=== PATIENT | female | born 1955 | race Caucasian/White ===

== ENCOUNTER 2018-04-05 13:56 | Outpatient (CLI) | payer BC ==
--- NOTE | 2018-04-05 15:02 | RAD ---
AP VIEW PELVIS: Date: 04/05/18 INDICATION: History of right hip pain. COMPARISON: None. FINDINGS: There is a calcified fibroid seen within the lower central pelvis. Enthesopathic change is seen over the anterior pelvis. There is moderate degenerative change of the symphysis pubis. There is mild dege nerative change of SI joint. There is mild osteoarthrosis of both hips. No acute fracture is evident. IMPRESSION: 1. No acute osseous abnormality. 2. Calcified fibroid within the lower central pelvis. POS: [facility]
--- NOTE | 2018-04-05 16:52 | CT ---
CT OF THE PELVIS WITHOUT IV CONTRAST 04/05/18 INDICATION: History of pelvic mass and right hip pain. COMPARISON: AP view of the pelvis dated 04/05/18 at 2:06 p.m. FINDINGS: There is a peripherally calcified subserosal fibroid involving the anterior body of the uterus measur ing 5 cm. There are numerous additional smaller calcified fibroids within the body of the uterus. The re is a subserosal mass extending from the left posterolateral margin of the uterus measuring 3.7 x 2 .3 cm that is also suspicious for subserosal fibroid. This appears separate from the left adnexa whic h is best seen on image 3 4 of series 2. Right adnexa is normal appearing. There is small phleboliths in the lower pelvis. The bladder is decompressed. There is scattered diverticula involving the colon . There are moderate calcifications noted involving the visualized abdominal aortic and iliac vascula ture. No lymphadenopathy is evident. No free fluid is identified. There is a posterior midline fusion defect of L5. There is advanced disc degenerative and facet osteoarthritic change at L4-5 and L5-S1. No acute osseous abnormality is grossly evident. There is mild degenerative change of both hips. IMPRESSION: 1. Fibroid uterus. 2. Lobulated soft tissue density mass extending off the left posterolateral aspect of the uterin e fundus is suspicious for an additional subserosal fibroid. As a conservative measure, would recomme nd a follow up pelvic ultrasound to fully characterize this lesion. This lesion does appear to be sep arate from the left adnexa. 3. Scattered degenerative change and osteoarthritic change as described above. 4. Diverticulosis. 5. Other chronic findings as above. Contact was made with Dr. Tesha Riley's answering service. Call was made to Dr. Mercy matos' answering service at 4:05 p.m. on 04/05/18. Code CR POS: [facility]
== END 2018-04-05 13:57 | disposition home or self-care (01) ==
LOC: BICCT 13:56
DX: M25.551 Pain in right hip (principal); D25.2 Subserosal leiomyoma of uterus; M47.816 Spondylosis without myelopathy or radiculopathy, lumbar region; M47.817 Spondylosis without myelopathy or radiculopathy, lumbosacral region; K57.30 Diverticulosis of large intestine without perforation or abscess without bleeding; I70.0 Atherosclerosis of aorta; M16.0 Bilateral primary osteoarthritis of hip; Z98.1 Arthrodesis status
CPT/HCPCS: 72170; 72192

== ENCOUNTER 2018-05-06 20:44 | Emergency (ER) | payer BC ==
[2018-05-06 21:36] LABS: #Eosinphils 0.1 thou/uL (0.0-0.7); #Lymphocytes 0.9 thou/uL (1.20-3.40); #Monocytes 0.6 thou/uL (0.11-0.59); #Neutrophils 5.7 thou/uL (1.40-6.50); %Basophils 0.5 % (0.0-1.0); %Eosinophils 1.5 % (0.0-10.0); %Lymphocytes 11.7 % (21.0-51.0); %Monocytes 8.5 % (0.0-10.0); %Neutrophils 77.9 % (42.0-75.0); Hemoglobin 12.1 g/dL (12.0-16.0); Mean Corpuscular HGB CONC 33.7 g/dL (32.0-36.0); Mean Corpuscular Hemoglobin 30.2 pg (27.0-31.0); Mean Corpuscular Volume 89.8 fL (78.0-98.0); Mean Platelet Volume 7.5 fL (7.4-10.4); Platelet Count 211 thou/uL (130-400); RBC Distribution Width 11.7 % (11.5-14.5); White Blood Cell (WBC) Count 7.3 thou/uL (4.8-10.8)
[2018-05-06 21:41] LABS: Bilirubin Negative (Negative); Blood, Urine Moderate (Negative); Clarity CLOUDY (Clear); Glucose, Urine (Dipstick) Negative (Negative); Leukocyte Large (Negative); Nitrite Negative (Negative); Protein, Urine (Dipstick) Trace mg/dL (Neg-Trace); Specific Gravity, Urine 1.017 (1.002-1.036); Urobilinogen 0.2 mg/dL (0.2-1.0); pH, Urine 5.5 (5.0-9.0)
[2018-05-06 21:43] LABS: Bacteria/HPF 4+ HPF (None Seen); Hyaline Casts/LPF 0-3 HYALINE CAST LPF (0-3 Hyaline); Pathc Cast-AUWi Flag 0.29 (0-2.49); Squamous Epithelial 0-3 HPF (0-3)
[2018-05-06 21:52] LABS: ALT (SGPT) 14 U/L (8-55); AST (SGOT) 16 U/L (5-34); Albumin 4.2 g/dL (3.4-4.8); Alkaline Phosphatase 89 U/L (40-150); Anion Gap 15 mmol/L (10-20); BUN (Urea Nitrogen) 16 mg/dL (9.8-20.1); Bilirubin, Total 0.9 mg/dL (0.2-1.2); Calc. Creatinine Clearance 0 mL/min (70-130); Calcium 9.3 mg/dL (7.8-10.44); Carbon Dioxide 20 mmol/L (23-31); Chloride 104 mmol/L (98-107); Estimated GFR-MDRD 84; Glucose 144 mg/dL (80-115); Potassium 3.8 mmol/L (3.5-5.1); Protein, Total 7.2 g/dL (6.0-8.3); Sodium 135 mmol/L (136-145)
--- NOTE | 2018-05-06 22:10 | RAD ---
CHEST ONE VIEW: HISTORY: A 62-year-old female with a history of fever. COMPARISON: 03/18/2018 FINDINGS: Heart size is within normal limits. Lungs are clear. No pneumonia, edema, or pleural effusion. IMPRESSION: No acute intrathoracic disease. POS: [facility]
[2018-05-06] MEDS ORDERED: cefTRIAXone\\ROCEPHIN 2 GM VIAL ONE (22:11)
== END 2018-05-06 22:52 | disposition home or self-care (01) ==
LOC: ERS 20:44
DX: N39.0 Urinary tract infection, site not specified (principal)
CPT/HCPCS: 36415; 71045; 80053; 81003; 81015; 85025; 86140; 87040; 87077; 87086; 87186; 96365; J0696

== ENCOUNTER 2018-06-20 08:39 | Outpatient (CLI) | payer BC ==
--- NOTE | 2018-06-20 10:18 | BD ---
BONE DENSITOMETRY: INDICATION: A 62-year-old female for postmenopausal osteoporosis screening. FINDINGS: Lumbar Spine: BMD (g/cm2) L1 1.402 T-Score: 3.7 L2 1.555 T-Score: 4.8 L3 1.628 T-Score: 4.9 L4 1.625 T-Score: 5.1 L1-L4 1.553 T-Score: 4.6 Femoral Neck: 0.736 T-Score: -1.0 Total Femur: 1.027 T-Score: 0.7 Impression: Bone mineral density of the lumbar spine and femoral neck are within normal range. POS: [facility]
--- NOTE | 2018-06-20 10:22 | RAD ---
THORACIC SPINE TWO VIEWS: History: Wedge compression fracture of T11. Comparison: 03-18-18 FINDINGS: No acute fracture or malalignment. Low grade spondylosis midthoracic spine. Visualized lungs are unre markable. There is mild anterior inferior height loss of the lower thoracic spine likely at T11 and T12, chroni c and unchanged. IMPRESSION: No acute abnormality. No acute compression fracture. POS: [facility]
== END 2018-06-20 08:40 | disposition home or self-care (01) ==
LOC: BICMAMMO 08:39
PROVIDERS: ATTEND Internal Medicine Rheumatology
DX: Z13.820 Encounter for screening for osteoporosis (principal); M80.00XS Age-related osteoporosis with current pathological fracture, unspecified site, sequela
CPT/HCPCS: 72070; 77080

== ENCOUNTER 2019-05-21 07:58 | Outpatient (CLI) | payer MEDICARE, BC ==
--- NOTE | 2019-05-21 08:48 | RAD ---
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 No degenerative donna nges are seen. No soft tissue swelling is present. IMPRESSION: Unremarkable exam.
--- NOTE | 2019-06-02 10:50 | MMO ---
Bilateral MAMMO Bilat Screen [facility]. CLINICAL HISTORY: Patient is 63 years old and is seen for screening. The patient has no family history of breast cancer. The patient has no personal history of cancer. VIEWS: The views performed were: bilateral craniocaudal with tomosynthesis and bilateral mediolateral oblique with tomosynthesis. FILMS COMPARED: The present examination has been compared to prior imaging studies performed at [facility] on 10/12/2016 and 10/16/2017. This study has been interpreted with the assistance of computer-aided detection. MAMMOGRAM FINDINGS: There are scattered fibroglandular densities. There are no suspicious masses, suspicious calcifications, or new areas of architectural distortion. IMPRESSION: THERE IS NO MAMMOGRAPHIC EVIDENCE OF MALIGNANCY. A ROUTINE FOLLOW-UP MAMMOGRAM IN 1 YEAR IS RECOMMENDED. THE RESULTS OF THIS EXAM WERE SENT TO THE PATIENT. ACR BI-RADS Category 1 - Negative MAMMOGRAPHY NOTE: 1. A negative mammogram report should not delay a biopsy if a dominant of clinically suspicious mass is present. 2. Approximately 10% to 15% of breast cancers are not detected by mammography. 3. Adenosis and dense breasts may obscure an underlying neoplasm. Reported by: BLANCA DUMONT MD Electonically Signed: [id number]
== END 2019-05-21 07:59 | disposition home or self-care (01) ==
LOC: BICMAMMO 07:58
PROVIDERS: ATTEND Family Medicine
DX: Z12.31 Encounter for screening mammogram for malignant neoplasm of breast (principal); M25.542 Pain in joints of left hand
CPT/HCPCS: 77063; 77067

== ENCOUNTER 2019-06-23 09:30 | Outpatient (CLI) | payer MEDICARE, BC ==
--- NOTE | 2019-06-23 09:47 | RAD ---
Exam: 4 views cervical spine HISTORY: Pain. FINDINGS: Odontoid process is unremarkable. Lateral masses of C1 and C2 articulate appropriately. Mild facet arthropathy on the AP projection. No malalignment or fracture. Soft tissue calcifications in the left and right neck, likely due to carotid atherosclerotic disease. Prevertebral soft tissue swelling is not appreciated. Moderate loss of disc space height and osteophy te formation at C5-C6 and C6-C7. Limited evaluation of the cervicothoracic junction. Cervical spine vertebral body height is maintained. There is no fracture. Predental space is normal. IMPRESSION: Degenerative change at C5-C6 and C6-C7. Transcribed Date/Time: 06/23/2019 10:02 AM
== END 2019-06-23 09:31 | disposition home or self-care (01) ==
LOC: BICRAD 09:30
PROVIDERS: ATTEND Family Medicine
DX: M54.2 Cervicalgia (principal); M47.812 Spondylosis without myelopathy or radiculopathy, cervical region
CPT/HCPCS: 36415; 72040; 80053; 80061; 82306; 84443; 85025